=== PATIENT | female | born 1930 | race Caucasian/White ===

== ENCOUNTER 2018-07-24 12:46 | Outpatient (CLI) | payer MEDICARE, OTHER | END 2018-07-24 12:47 | disposition critical access hospital (66) | LOC: EMS 12:46 | PROVIDERS: ATTEND Surgery | DX: E53.1 Pyridoxine deficiency (principal); R11.10 Vomiting, unspecified; R19.7 Diarrhea, unspecified | CPT/HCPCS: A0425; A0429 ==

== ENCOUNTER 2018-07-24 13:05 | Emergency (ER) | payer MEDICARE, OTHER ==
--- NOTE | 2018-07-24 13:24 | ED Physician Documentation ---
History of Present Illness - Stated complaint Stated Complaint: WEAKNESS - Chief complaint Chief Complaint: Abd Pain - History obtained from History obtained from: Patient - History of Present Illness Timing: Prior to arrival - Additonal information Additional information: Patient is an 88-year-old female with history of heart disease presenting with recent onset of nausea and vomiting without abdominal pain. Patient is a somewhat poor historian and also actively vomiting, so history is limited. She does deny fever, stool changes, urinary changes as well. No known worsening or improving factors noted. 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 HEENT: Tonsil/Adenoidectomy - Present Medications Home Medications: Ambulatory Orders Medication Instructions Recorded Confirmed HYDROcod/ACETAM 5/325 [[place] 5/325] 1 ea PO Q6H PRN #20 tablet 02/21/15 LORazepam [Ativan] 02/19/16 Metoprolol Tartrate 50 mg 02/19/16 Ondansetron HCl [Zofran] 4 mg PO Q6H PRN #10 tablet 02/19/16 Polyethylene Glycol 3350 [Miralax] 17 gm PO DAILY PRN #1 bottle 02/19/16 amLODIPine [Norvasc] 10 02/19/16 Ondansetron Odt [Zofran] 4 mg TL Q6H PRN #8 tablet 07/24/18 - Allergies Allergies/Adverse Reactions: Allergies Allergy/AdvReac Type Severity Reaction Status Date / Time No Known Drug Allergies Allergy Verified 07/24/18 13:11 - Social History Does the pt smoke?: No Smoking Status: Never smoker PD ED PE NORMAL - General General: Other (Thin, frail appearing female with generalized tremors, actively vomiting. Hard of hearing.) - HEENT HEENT: Atraumatic, Moist mucous membranes - Cardiac Cardiac: RRR, No murmur - Respiratory Respiratory: No respiratory distress, Clear bilaterally - Abdomen Abdomen: Normal bowel sounds, Soft, Non tender, Non distended - Derm Derm: Normal color, Warm and dry, No rash, Other - Extremities Extremities: No deformity - Neuro Neuro: No motor deficit (No gross motor or sensory deficits present, generalized tremor, likely chronic), No sensory deficit - Psych Psych: Normal mood, Normal affect Results - Vitals Vitals: Vital Signs - 24 hr 07/24/18 07/24/18 13:07 14:39 Temperature 35.7 C L Heart Rate 68 63 Respiratory 20 18 Rate Blood Pressure 176/63 H 144/68 H O2 Saturation 98 99 Oxygen O2 Source Room air - EKG (time done) 1412 Rate: Rate (enter#) (71) Rhythm: Other (Significant artifact due to patient movement, but appears sinus) Intervals: Prolonged QT QRS: LVH Ischemia: Non specific changes Other comments: Other comments (PVCs) - Labs Labs: Laboratory Tests 07/24/18 07/24/18 07/24/18 13:45 13:45 13:45 WBC 11.2 H RBC 5.27 Hgb 15.7 Hct 47.1 H MCV 89.4 MCH 29.8 MCHC 33.4 RDW 13.8 Plt Count 198 MPV 10.1 Neut # (Auto) 9.3 H Lymph # (Auto) 1.3 L Hern[place] # (Auto) 0.4 Eos # (Auto) 0.0 Baso # (Auto) 0.1 Absolute Nucleated RBC 0.00 Nucleated RBC % 0.0 Sodium 135 Potassium 3.1 L Chloride 98 L Carbon Dioxide 25 Anion Gap 12.0 BUN 23 H Creatinine 0.8 Estimated GFR (MDRD) 68 L Glucose 164 H Calcium 9.7 Total Bilirubin 0.8 AST 26 ALT 14 Alkaline Phosphatase 89 Troponin I < 0.04 Total Protein 7.5 Albumin 4.7 Globulin 2.8 Albumin/Globulin Ratio 1.7 Lipase 74 H Urine Color Urine Clarity Urine pH Ur Specific [place]ollhouse Urine Protein Urine Glucose (UA) Urine Ketones Urine Occult Blood Urine Nitrite Urine Bilirubin Urine Urobilinogen Ur Leukocyte Esterase Ur Microscopic Review Urine Culture Comments Influenza A (Rapid) Influenza B (Rapid) 07/24/18 07/24/18 14:00 15:01 WBC RBC Hgb Hct MCV MCH MCHC RDW Plt Count MPV Neut # (Auto) Lymph # (Auto) Hernando # (Auto) Eos # (Auto) Baso # (Auto) Absolute Nucleated RBC Nucleated RBC % Sodium Potassium Chloride Carbon Dioxide Anion Gap BUN Creatinine Estimated GFR (MDRD) Glucose Calcium Total Bilirubin AST ALT Alkaline Phosphatase Troponin I Total Protein Albumin Globulin Albumin/Globulin Ratio Lipase Urine Color YELLOW Urine Clarity CLEAR Urine pH 7.0 Ur Specific [place] 1.010 Urine Protein NEGATIVE Urine Glucose (UA) NEGATIVE Urine Ketones NEGATIVE Urine Occult Blood NEGATIVE Urine Nitrite NEGATIVE Urine Bilirubin NEGATIVE Urine Urobilinogen 0.2 (NORMAL) Ur Leukocyte Esterase NEGATIVE Ur Microscopic Review NOT INDICATED Urine Culture Comments NOT INDICATED Influenza A (Rapid) Negative Influenza B (Rapid) Negative PD MEDICAL DECISION MAKING - ED course Complexity details: reviewed results, re-evaluated patient, considered differential, d/w patient ED course: Patient is a relatively poor historian, but it appears that her only complaint is nausea and vomiting. This nausea and vomiting seem isolated and are not acco mpanied by abdominal pain, making gallbladder disease, appendicitis, small bowel obstruction, diverticulitis, AAA less likely. Feel the patient may be experiencing gastroenteritis or other viral illness. Also considered renal disease, but feel that nephrolithiasis and pyelonephritis less likely. Do have suspicion for UTI given age and gender and will obtain urinalysis in addition to screening blood work. Otherwise, have low suspicion for respiratory or cardiac issues at this time. No other evidence of systemic illness, neurological deficit from baseline, or trauma on exam. Patient started on IV fluid and nausea medication while workup performed.Medications appear to help relieve patient's symptoms. EKG did not show evidence of acute ischemia, although poor quality, given patient's tremors and vomiting. Troponin negative. Again, have low suspicion for cardiac etiology. Screening lab work and urinalysis also returned relatively unremarkable with exception of very mildly elevated lipase. Patient may be experiencing an extremely mild case of pancreatitis. Did not find obvious causes of such per history or on exam. Patient also had an extremely small elevation in her white blood cell count, which could likely be due to vomiting as opposed to infection. No acute kidney injury noted. No evidence of UTI. Influenza testing negative. Awaiting CT imaging at this time.CT returned unremarkable. Upon reevaluation's, patient comfortable and often sleeping with no further vomiting. Of note, patient had received Zofran prior to obtaining EKG, which did reflect a borderline prolonged QT. All antiemetics will have the potential risk of prolonging the QT.Do feel that she may need an antiemetic at home, but plan to prescribe to use it sparingly given this concern.Discuss results and recommendations with patient and her family including use of medications, return precautions, and appropriate follow-up as other supportive cares including clear liquid diet. Family voiced understanding and are comfortable with discharge plan. Departure - Departure Disposition: 01 Home, Self Care Clinical Impression: Nausea and vomiting Qualifiers: Vomiting type: unspecified Vomiting Intractability: non-intractable Qualified Code(s): R11.2 - Nausea with vomiting, unspecified Condition: Good Instructions: Diet Clear Liquid Dc, ED Nausea Vomiting Follow-Up: Gustavo Lopez MD [Primary Care Provider] - Within 3 Days Prescriptions: Ondansetron Odt [Zofran] 4 mg TL Q6H PRN #8 tablet PRN Reason: Nausea / Vomiting Comments: Please continue all home medications as previously instructed. May use Zofran as needed to help control nausea and vomiting. Also recommend clear diet for t he next 2-3 days and advancing diet as she can tolerate. Please follow-up with primary care physician in 2-3 days as well and return to ED sooner if she expenses worsening symptoms or other concerns.
[2018-07-24] MEDS ORDERED: ONDANSETRON 4 MG/2 ML VIAL IVP STA (13:29)
[2018-07-24] MEDS ORDERED: SODIUM CHLORIDE 0.9% 1,000 ML IV ONE (13:29)
[2018-07-24 14:04] LABS: BASOPHILS # (AUTO) 0.1 10^3/uL (0.0-0.1); BASOPHILS % (AUTO) 0.7 %; EOSINOPHILS % (AUTO) 0.2 %; HGB - HEMOGLOBIN 15.7 g/dL (12.0-16.0); LYMPHOCYTES # (AUTO) 1.3 10^3/uL (1.5-3.5); LYMPHOCYTES % (AUTO) 11.6 %; MEAN CORPUSCULAR HEMOGLOBIN 29.8 pg (27.0-31.0); MEAN CORPUSCULAR HGB CONC 33.4 g/dL (32.0-36.0); MEAN CORPUSCULAR VOLUME 89.4 fL (81.0-99.0); MEAN PLATELET VOLUME 10.1 fL (7.9-10.8); MONOCYTES # (AUTO) 0.4 10^3/uL (0.0-1.0); MONOCYTES % (AUTO) 3.9 %; NEUTROPHILS # (AUTO) 9.3 10^3/uL (1.5-6.6); NEUTROPHILS % (AUTO) 83.6 %; PLT - PLATELET COUNT 198 10^3/uL (130-450); RED BLOOD COUNT 5.27 10^6/uL (4.20-5.40); RED CELL DISTRIBUTION WIDTH 13.8 % (12.0-15.0); WHITE BLOOD COUNT 11.2 x10^3/uL (4.8-10.8)
[2018-07-24 14:24] LABS: ALBUMIN 4.7 g/dL (3.2-5.5); ALBUMIN/GLOBULIN RATIO 1.7 (1.0-2.2); BILIRUBIN,TOTAL 0.8 mg/dL (0.2-1.0); CALCIUM 9.7 mg/dL (8.5-10.3); CREATININE 0.8 mg/dL (0.4-1.0); TOTAL PROTEIN 7.5 g/dL (6.7-8.2)
[2018-07-24 15:28] LABS: BILIRUBIN,URINE NEGATIVE (NEGATIVE); GLUCOSE, URINE (UA) NEGATIVE (NEGATIVE); KETONES,URINE (UA) NEGATIVE (NEGATIVE); LEUKOCYTE ESTERASE, URINE NEGATIVE (NEGATIVE); NITRITE,URINE NEGATIVE (NEGATIVE); OCCULT BLOOD,URINE NEGATIVE (NEGATIVE); PROTEIN,URINE NEGATIVE (NEGATIVE); UROBILINOGEN,URINE 0.2 (NORMAL) E.U./dL (NORMAL)
[2018-07-24 15:44] LABS: CLARITY,URINE CLEAR (CLEAR)
[2018-07-24] MEDS ORDERED: IOPAMIDOL-300 100 ML VIAL ONE (16:00)
--- NOTE | 2018-07-24 17:02 | CT Report ---
Reason: nausea and vomiting without pain Procedure Date: 07/24/2018 Accession Number: [id number] / [id number] Procedure: CT - Abdomen/Pelvis W CPT Code: FULL RESULT: EXAM: CT ABDOMEN AND PELVIS EXAM DATE: 07/24/2018 04:20 PM. CLINICAL HISTORY: Nausea and vomiting without pain. COMPARISONS: ABDOMEN/PELVIS W/ 02/19/2016 2:02 PM. TECHNIQUE: Routine helical CT imaging was performed through the abdomen and pelvis. IV contrast: CE. Enteric contrast: No. Reconstructions: Coronal and sagittal. In accordance with CT protocol optimization, one or more of the following dose reduction techniques were utilized for this exam: automated exposure control, adjustment of mA and/or KV based on patient size, or use of iterative reconstructive technique. FINDINGS: Lung Bases: Unremarkable. Liver: Normal. No masses. Gallbladder/Bile Ducts: Unremarkable. Spleen: Normal. Pancreas: Normal. Adrenal Glands: Normal. Kidneys: No significant abnormalities. There is an exophytic cyst emanating from the anterior cortex of the left kidney. Peritoneal Cavity/Bowel: Normal. No free fluid, free air or adenopathy. No masses or acute inflammatory process. The appendix is well visualized and normal. Pelvic Organs: Normal. The bladder and visualized pelvic organs are within normal limits. Vasculature: There are atheromatous calcifications of the aorta and branch vessels. No acute abnormalities. Bones: No significant abnormality. Other: None. IMPRESSION: Negative contrast enhanced CT of the abdomen and pelvis. No acute solid or hollow viscus organ abnormalities to account for the patient's abdominal pain. RADIA
[2018-07-24] MEDS ORDERED: IOPAMIDOL-300 100 ML VIAL IVP ONE (17:33)
[2018-07-24 17:59] VITALS: BP 138/70
== END 2018-07-24 18:05 | disposition home or self-care (01) ==
LOC: EDUNIT# → ED 13:05
DX: R11.2 Nausea with vomiting, unspecified (principal); I10 Essential (primary) hypertension; I25.10 Atherosclerotic heart disease of native coronary artery without angina pectoris; I25.2 Old myocardial infarction
CPT/HCPCS: 36415; 74177; 80053; 81003; 83690; 84484; 85025; 87275; 87276; 93005; 96374; 99283; Q9967; 81001; 87086

== ENCOUNTER 2018-08-03 14:47 | Outpatient (CLI) | payer MEDICARE, OTHER ==
--- NOTE | 2018-08-03 15:22 | CONSULTATION NOTE ---
Palliative Care Consultation - Referral Referring Provider: Dr Lopez. Time of Visit: 08/03/2018. 11:15 - 12:30 Referral setting: Home Referral Reason: Dementia / GI upset, weakness - Information Sources Records reviewed: Previous records reviewed History/Review of Systems obtained from: Patient, Family Exam limitations: Clinical condition (Dementia, short-term memory deficits) - History of Present Illness Brief History of Present Illness: 88-year-old female with h/o heart disease, lives at home with her adult son. She has advanced dementia, likely vascular, with slow and steady cognitive and functional decline. Recently seen in ED for N/V and complaints of weakness, has not returned to baseline. Medical history: Advanced dementia; CAD; PVD; h/o CT with stents placed; HTN; HLD; osteoporosis; h/o hip fracture; anxiety; personal h/o carotid stenosis. Present at today's visit is her son, Winston who lives with her, and daughter Belén, who lives in [place]. Son Winston is her main caregiver. He is on disability due to Parkinson's disease. Daughter Belén is also a palliative care patient due to h/o advanced liver disease. 07/24/2018 patient's family took her to ED for nausea with vomiting, not accompanied by abdominal pain, making gallbladder diseas, appendicitis, SBO, diverticulitis, AAA less likely. EKG didn't show evidence of acute ischemia, troponin was negative, urinalysis also unremarkable. Another possibility was an extremely mild case of pancreatitis. She was DC'd home with Zofran and recommendation for a clear diet for next 2-3 days. 07/28/2018 she followed up with her PCP. PCP thought PUD (peptic ulcer disease) could be on the differential; patient and family were not supportive of diagnostic endoscopy. The agreed plan was to try sucralfate and Prilosec with close follow-up, and a referral to Palliative Care. Family notes that patient is still not back to baseline, spending most of her time in bed sleeping, refusing hygiene care or changing her briefs (this has been an issue for a while), and with poor appetite. She did have one day of increased activity and appetite, but feel back into lethargy and sleeping most of the time. Patient does rouse easily today when I went in to her room, responding appropriately though vaguely to questions. She denies abdominal pain, but reports mild stomach upset. She does say she is "hungry." She denies cough, chest pain, SOA, dysuria, constipation. She is eventually agreeable to sitting up in bed, is able to transfer easily out of bed to standing, and is able to ambulate with walker into the living room and sit in her normal easy chair. Both Winston and Belén were pleased to see her up. She reports being hungry, but didn't touch the food Belén brought her. We discussed nutritional, high calorie food ideas (patient has problems chewing due to dentures) serving smaller, more frequent snack/meals, possible using an appetite stimulant (we did not start one today), also discussed CBD products as appetite stimulants. Discussed tactics for increasing helping to bath, washing hair and provide p erson care for her. They have been working with [employer] and are in the [employer] program, so she has 8 hr/month of caregiving. Jovana the caregiver has started coming Wednesdays for 2 hours and helps out with bathing. 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 She lives with her son Winston in [place]. Her daughter Belén lives in [place] on [facility]. Family History - Family History Family History Comment/Other: Family history non-contributory. Medications/Allergies - Medications Home Medications: Ambulatory Orders Medication Instructions Recorded Confirmed LORazepam [Ativan] 0.5 mg PO TID PRN 02/19/16 08/03/18 Metoprolol Tartrate 75 mg PO BID 02/19/16 08/03/18 amLODIPine [Norvasc] 10 mg PO DAILY 02/19/16 08/03/18 Ondansetron Odt [Zofran] 4 mg TL Q6H PRN #8 tablet 07/24/18 08/03/18 Cholestyramine [Questran] 4 g PO BID 08/03/18 08/03/18 Donepezil HCl 10 mg PO QPM 08/03/18 08/03/18 Pantoprazole Sodium [Protonix] 40 mg PO DAILY 08/03/18 08/03/18 Sucralfate [Carafate] 10 ml PO QID 08/03/18 08/03/18 hydroCHLOROthiazide 25 mg PO DAILY 08/03/18 08/03/18 [Hydrochlorothiazide] - Allergies Allergies/Adverse Reactions: Allergies Allergy/AdvReac Type Severity Reaction Status Date / Time atorvastatin [From Lipitor] Allergy Unknown Verified 07/27/18 08:04 Review of Systems - Constitutional Constitutional: reports: Fatigue, Weakness, Poor appetite, Other (Fluctuating weight. Weighed 132 lbs at office visit 07/28/18, BMI 24.04, ht 62.25 inches. In Jan 2016 in ED weighed 68.039kg (149.7 lbs) BMI 26.6. In Jan 2015 ED, weighed 58.976kg (129.7 lbs) 23.8 BMI.). denies: Fever, Chills, Malaise, Night sweats - Ears, Nose & Throat Ears, Nose & Throat: reports: Hearing loss. denies: Hearing aids, Nasal congestion, Postnasal drainage - Cardiovascular Cardiovascular: denies: Palpitations, Chest pain, Edema, Lightheadedness, Decr. exercise tolerance - Respiratory Respiratory: denies: Cough, Sputum production, Wheezing, SOB at rest - Gastrointestinal Gastrointestinal: reports: Nausea, Poor appetite, Early satiety. denies: Abdominal pain, Abdominal distention - Genitourinary Genitourinary: reports: Incontinence (occasional urinary incontinence, one episode incontinence of bowel). denies: Dysuria - Musculoskeletal Musculoskeletal: reports: Assistive devices (walker). denies: Muscle aches, Transfer issues - Integumentary Integumentary: reports: Dryness - Neurological Neurological: reports: General weakness - Psychiatric Psychiatric: denies: Behavior disturbances - Other Findings Other Findings: Limited ROS. Physical Exam - Vital Signs Temperature: 96.3 F Pulse Rate: 48 O2 Saturation: 95 (room air) Blood Pressure: 128/53 (wrist cuff) - Physical Exam General Appearance: positive: No acute distress, Other (Easily woken up, was alert once she was awake and talking) ENT: positive: Dry mucous membranes Neck: positive: Trachea midline Cardiovascular: positive: Regular rate & rhythm Respiratory: positive: Diminished throughout. negative: Wheezes, Rales, Rhonchi Abdomen: positive: Non-tender, Soft, Nml bowel sounds. negative: Guarding, Organomegaly, Distended Skin: positive: Dryness Extremities: positive: Nml appearance, No pedal edema Neurologic/Psychiatric: positive: Mood/affect nml, Disoriented to time Palliative Care - POLST Patient has POLST: Yes POLST Status: DNR, Selective Treatment Pain: No pain Tiredness/Fatigue: Severe (7-10) Drowsiness/Sedation: Moderate (4-6) Nausea: Mild (1-3) Dyspnea: None Anorexia: Moderate (4-6) Sleep: Other (excessive sleeping since ED visit 07/24/18) Performance Status: Ambulatory with walker Sleeping most of the time Articulate Unable to prepare own meals Dresses self, wears the same cloths day after day Disinterest in appearance Refuses baths and hair washing Doesn't want briefs changed Poor appetite, but reports being hungry - Palliative Care Discussion: Son doesn't recall exactly when she had diagnosis of dementia, thinks it's been 2-3 years. She has remained in the house, no longer going outside, since Jan 2014 or 2014. The son remembers it was in January. She does wear Life Alert, but it's not hooked up to a service, and son doesn't think she knows what to do with it. Son is with her most of the time, leaving for only short periods. He remains able to drive short distances around town. His Parkinson's is advancing. So far he is finding it possible to provide caregiving but it's becoming more difficult. The patient doesn't allow him to do personal care, and she wears her adult briefs for days at a time. Her clothing too. Daughter Belén can come perhaps once a week. She doesn't drive and there's no public transit where she lives in [place]. Jovana, the errol stephenson, has been helping with the hygiene care on Wednesdays. Patient qualified only for [facility], so they get 8 hr/month caregiving support. Patient denies abdominal pain, and reports her stomach is upset, but she is not nauseated. She says she's hungry, but doesn't eat when food is provided. Family is worried about her decline, which has been significant since her trip to the ED on july 24. They were suprised and pleased she got up today and sat in her favorite chair. She has basically been saying all she wants to do is go to sleep. Family reports that she had said she'd like to go to sleep and not wake up. They thought she would just want comfort care and definitely no hospital transf er. But when I asked her directly, she said she would want to go to the hospital if she had something like pneumonia. Family says she's had a h/o pneumonias At this time, family would support Hospice if patient qualified, they are ready to support comfort care. Patient's goals of care may be evolving, and Palliative Care will continue this conversation with family and patient in subsequent visits. Results - Lab Results Lab results reviewed: Yes Impression and Recommendations - Palliative Care Impression: 88-year-old female with h/o heart disease, lives at home with her adult son. She has advanced dementia, likely vascular, with slow and steady cognitive and functional decline. Recently seen in ED for N/V and complaints of weakness, has not returned to baseline, continues to complain of stomach upset, has a poor appetite, does not want to pursue endoscopy. Has recently started receiving caregiver support once a week through the [facility] program. Patient and family would benefit ongoing Palliative Care support and monitoring. Recommendations/Counseling Done: Dementia without behaviors: Diagnosed 2-3 years ago. Steady decline cognitively and functionally. Son is primary caregiver, has a [employer] caregiver come in a few hours on Wednesdays. Daughter Belén can also provide some support weekly. Patient is resisting bath and hygiene, offered education and tactics to approach this. She is currently on donepezil. She has lorazepam for anxiety, family reports it's rarely used. Stomach upset: Denies pain and nausea, reports she is hungry but doesn't eat. On sucralfate daily for 2 weeks, also on pantoprazole and cholestyramine BID. She has ondansetron for N/V, use sparingly, it can cause QT prolongation. Patient confirmed again today she doesn't want follow up diagnostics (endoscopy). Will continue to monitor. Spoke with children about appetite stimulants, also about CBD. Will monitor her appetite (she reports being hungry today) continue to follow up. HTN: BP today 128/53. Continue Hctz, metoprolol and amlodipine (she has no pedal edema). Advance care planning: POLST is DNR and selective. Her son and daughter thought she absolutely would not want any hospitalization, that she's upset when she is there, and she's spoken of wanting to fall asleep and just not wake up. Patient herself said she'd actually want to go to the hospital, such as for pneumonia. Will continue the goals of care conversation at subsequent visits. Adult children would be supportive of Hospice when medical criteria are met. Follow up visit Tue08/30/18 11:00ish Time Spent: 75 minutes with more than 50% of the time spent on counseling, education, and anticipatory guidance.
== END 2018-08-03 14:48 | disposition home or self-care (01) ==
LOC: PC 14:47
PROVIDERS: ATTEND Nurse Practitioner
DX: Z51.5 Encounter for palliative care (principal); F03.90 Unspecified dementia, unspecified severity, without behavioral disturbance, psychotic disturbance, mood disturbance, and anxiety; R10.13 Epigastric pain; I10 Essential (primary) hypertension; Z87.891 Personal history of nicotine dependence; Z66 Do not resuscitate
CPT/HCPCS: 99345

== ENCOUNTER 2018-08-30 16:39 | Outpatient (CLI) | payer MEDICARE, OTHER ==
--- NOTE | 2018-08-30 17:39 | CONSULTATION NOTE ---
Palliative Care Follow Up - Referral Referring Provider: Dr Lopez Time of Visit: Tue08/30/2018. 11:10 - 12:10 Referral setting: Home Referral Reason: Dementia - Information Sources Records reviewed: Previous records reviewed History/Review of Systems obtained from: Patient, Family Exam limitations: Clinical condition (Dementia, short term memory deficits) - History of Present Illness Update Brief HPI Update: 88-year-old female with h/o heart disease, lives at home with her adult son. She has advanced dementia, likely vascular, with slow and steady cognitive and functional decline, spends most of her time in bed, resists personal care. Appetite has improved recently Medical history: Advanced dementia; CAD; PVD; h/o DE with stents placed; HTN; HLD; osteoporosis; h/o hip fracture; anxiety; personal h/o carotid stenosis. Present at today's visit is her son, Winston who lives with her, and daughter Belén, who lives in [place]. They report patient is eating better now, accepting more variety of food. She gets Meals on Wheels. She is having more regular bowel movements. She is walking more, with episodic spurts of energy, where she'll come out of the bedroom, with some idea in mind around the house. Most of the time she spends in bed. Patient complains of vague symptoms of "having a cold." She denies cough, phlegm, sore throat. Has history of chronic sinus problems. When encouraged to get out of bed and walk, she agrees it is a good idea, but can she start tomorrow morning. Family is most concerned about her remaining in bed most of time, and how to provide hygiene and keep her clean. She resists personal care, hasn't taken a shower since April. Resists changing underwear, showers, washing hair. Offered counseling that this behavior is not uncommon, and ideas for approaching her, setting realistic goals. Her son Winston is uncomfortable with doing any sort of personal care with her. Belén is able to have some success, but lives in [place] and has transport challenges getting here. They do have [employer] help, 2 hours per week. It is unclear whether the patient would qualify for Medicaid and [employer], and unclear from Winston how much he has looked into it on her behalf. Medications/Allergies - Medications Home Medications: Ambulatory Orders Medication Instructions Recorded Confirmed LORazepam [Ativan] 0.5 mg PO TID PRN 02/19/16 08/30/18 Metoprolol Tartrate 75 mg PO BID 02/19/16 08/30/18 amLODIPine [Norvasc] 10 mg PO DAILY 02/19/16 08/30/18 Ondansetron Odt [Zofran] 4 mg TL Q6H PRN #8 tablet 07/24/18 08/30/18 Cholestyramine [Questran] 4 g PO BID 08/03/18 08/30/18 Donepezil HCl 10 mg PO QPM 08/03/18 08/30/18 Pantoprazole Sodium [Protonix] 40 mg PO DAILY 08/03/18 08/30/18 hydroCHLOROthiazide 25 mg PO DAILY 08/03/18 08/30/18 [Hydrochlorothiazide] Cetirizine HCl 5 mg PO DAILY 08/30/18 08/30/18 - Allergies Allergies/Adverse Reactions: Allergies Allergy/AdvReac Type Severity Reaction Status Date / Time atorvastatin [From Lipitor] Allergy Unknown Verified 07/27/18 08:04 Review of Systems - Constitutional Constitutional: reports: Fatigue, Weakness, Other (Fluctuating weight. Most recent weight is 132 lbs at office visit 07/28/18, BMI 24.04, ht 62.25 inches. In Jan 2016 in ED weighed 68.039kg (149.7 lbs) BMI 26.6. In Jan 2015 ED, weighed 58.976kg (129.7 lbs) 23.8 BMI.). denies: Fever, Chills - Ears, Nose & Throat Ears, Nose & Throat: reports: Hearing loss, Postnasal drainage. denies: Sore throat - Cardiovascular Cardiovascular: denies: Chest pain, Edema - Respiratory Respiratory: denies: Cough, Sputum production, Wheezing, SOB at rest - Gastrointestinal Gastrointestinal: reports: Diarrhea (h/o loose stools). denies: Constipation, Nausea - Genitourinary Genitourinary: reports: Incontinence (occasional urinary incontinence; one episode bowel incontinence) - Musculoskeletal Musculoskeletal: reports: Assistive devices (walker). denies: Transfer issues - Neurological Neurological: reports: General weakness, Memory problems - Psychiatric Psychiatric: denies: Behavior disturbances Physical Exam - Vital Signs Temperature: 96.3 F Pulse Rate: 43 O2 Saturation: 95 (room air) Blood Pressure: 125/59 - Physical Exam General Appearance: positive: No acute distress, Lethargic, Other (wakes easily, wants to remain in bed) Eyes Bilateral: positive: No lid inflammation, Conjunctivae nml, No scleral icterus ENT: positive: No signs of dehydration, Other (missing front tooth) Neck: positive: Trachea midline Cardiovascular: positive: Regular rate & rhythm, No murmur, No gallop Respiratory: positive: Chest non-tender, No respiratory distress, Diminished throughout Skin: positive: Other (diffuse brown seborrheic keratosis lesions spread widely across upper back/shoulders. appears to be from chronic friction, possibly secondary to long hours in bed. Also has a small lipoma near mid thoracic spine, about 2cm x 2.5cm.) Extremities: positive: No pedal edema Neurologic/Psychiatric: positive: Mood/affect nml, Disoriented to time Palliative Care - POLST Patient has POLST: Yes POLST Status: DNR, Selective Treatment Performance Status: ambulatory with walker, has been walking more sleeps, remains in bed most of time articulate unable to prepare own meals dresses self, doesn't change clothes/underwear resistant to bathing and personal care improved appetite, eating more variety of food - Palliative Care Discussion: Patient has remained in the house since about 2014. Winston remembers her going outside to do some gardening when they first moved there, and then she never went out again. It appears there is an agoraphobic aspect in her behavior. Son has advancing Parkinson's disease, he doesn't leave her often. He still drives, but just short distances around town. Belén, daughter, doesn't have a car, gets around by public transit but it's challenging due to wear she lives in [place]. The son is not able, or comfortable enough, to provide personal caregiving to his mother (bathing, changing underwear), particularly since she is very resistant to receiving personal care. Winston's greatest concern and stress point is how to take care of the patient's hygiene. Although palliative care offered support and normalization for their situation (resistance to bathing/caregiving is common), it's still significantly challenging and stressful for Winston. He is not able to perform personal caregiving himself, for a variety of reasons, and in addition he deals with his own serious health issues related to Parkinson's. We discussed anticipating what will occur and what to expect as patient's care needs increase over time. This may be something that Winston and/or Belén may have not discussed or thought of in any depth previously. The patient is not on Medicaid, but she may possibly qualify. Winston reports she has no assets (they rent), her income is a bit over $900/month. They currently have [employer] caregiver support, 2hrs/week. I will refer them to palliative care licensed master social worker for resource support, particularly about whether she would qualify for medicaid/ROS[place], for increased caregiving support. Medicaid in particular would be of benefit in the future if her care needs escalate beyond what Winston can manage, and the family may need to look into placement. Impression and Recommendations - Palliative Care Impression: 88-year-old female with h/o heart disease, lives at home with her adult son. She has advancing dementia, likely vascular, with slow and steady cognitive and functional decline. Her appetite has improved recently, she has been walking more, with more regular bowel movements. She continues to spend most of her time in bed, neglects her hygiene and is highly resistant to personal care. Daughter Belén has been able to provide personal care, but doesn't live close by and isn't there often. Patient and family would benefit from support of Palliative Care Glass Handler for resource support, particularly looking into qualifying for medicaid and [employer]. They do currently have 2 hours of [employer] support weekly. Palliative Care will continue to provide support and monitoring. Recommendations/Counseling Done: Dementia without behaviors: Has steadily declined cognitively and functionally, but with recent improvement in appetite, and walking more frequently. Patient is resistant to bathing and hygiene, this is stressful and difficult for son/DPOA, who has serious health challenges with Parkinson's. Daughter Belén helps as she can but has health and transportation challenges of her own. Patient is on donepezil, with lorazepam for anxiety, rarely used. Anorexia: Improved appetite reported by family, with patient eating a wider variety of food. They don't feel appetite stimulants are needed currently. She also gets Meals on Wheels HTN: BP 125/59 on Hctz, metoprolol and amlodipine. Advance care planning: POLST is DNR and selective. Family's biggest concern currently is how to provide personal/hygiene care for patient who resists it, and son who is not comfortable or capable of providing personal care. Daughter helps when she can. Caregiver who comes for 2 hours doesn't appear to have success in getting pt to cooperate. Am referring this patient to Palliative Care licensed master social worker to provide resource and psychosocial lainez pport to this family. In particular, does the patient qualify for Medicaid and [employer] and their accompanying services and benefits. As for future goals of care, son and daughter thought patient absolutely would not want any hospitalization, that she's upset when she is there, in the past she's spoken of wanting to fall asleep and just not wake up. Patient herself at initial palliative care visit that she would actually want to go to the hospital, such as for pneumonia. Her adult children would be supportive of Hospice when medical criteria are met. Referred patient/family to Palliative Care SW for follow up on resource support. Time Spent: 60 minutes with more than 50% of the time spent on counseling, education, and coordination of care.
== END 2018-08-30 16:40 | disposition home or self-care (01) ==
LOC: PC 16:39
PROVIDERS: ATTEND Nurse Practitioner
DX: Z51.5 Encounter for palliative care (principal); I25.2 Old myocardial infarction; F03.91 Unspecified dementia, unspecified severity, with behavioral disturbance; Z66 Do not resuscitate; R63.0 Anorexia; R53.1 Weakness; I10 Essential (primary) hypertension; I25.10 Atherosclerotic heart disease of native coronary artery without angina pectoris; I73.9 Peripheral vascular disease, unspecified; E78.5 Hyperlipidemia, unspecified; F41.9 Anxiety disorder, unspecified; H91.90 Unspecified hearing loss, unspecified ear; R32 Unspecified urinary incontinence
CPT/HCPCS: 99350

== ENCOUNTER 2018-11-30 12:46 | Outpatient (CLI) | payer MEDICARE, OTHER | END 2018-11-30 12:47 | disposition critical access hospital (66) | LOC: EMS 12:46 | PROVIDERS: ATTEND Surgery | DX: R41.82 Altered mental status, unspecified (principal) | CPT/HCPCS: A0425; A0427 ==

== ENCOUNTER 2018-11-30 13:01 | Inpatient (IN) | payer MEDICARE, OTHER ==
--- NOTE | 2018-11-30 13:14 | ED Physician Documentation ---
PD HPI ALTERED MENTAL STATUS - Stated complaint Stated Complaint: AMS - History obtained from History obtained from: EMS - History of Present Illness Timing - onset: Today Timing - details: Still present in ED Quality / character: Unresponsive Associated symptoms: No: NVD Basline status: Alert and oriented X 3, Independent, Home Treatment FINANCIAL UNDERWRITER: Accucheck, Narcan - Additional information Additional information: This is an 88-year-old woman who lives with her son. Apparently she was normal before she went to bed last night sometime after it was dark. She however has been getting a little more sleepy over the past few days. This morning when she did get out of bed they went in to check on her and at noon she was in bed and would not wake up. She had not vomited. They were concerned that she might of had some agonal breathing sitting and called 911. Ambulance found her bradycardic with heart rate of 45. O2 sats were 95% blood pressure was 160/90. Pupils were pinpoint so they gave her 2 mg of Narcan although there is no access to narcotics that they are aware of. She had no response to that they gave her atropine 0.5 mg with heart rates improved into the 90s. They did have to suction her oropharynx is her thick secretions in it. They were unable to pro vide any further history and her son has not yet arrived in the emergency department. 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 Cardiovascular: Coronary stent (reported by reed) HEENT: Tonsil/Adenoidectomy - Present Medications Home Medications: Ambulatory Orders Medication Instructions Recorded Confirmed LORazepam [Ativan] 0.5 mg PO TID PRN 02/19/16 08/30/18 Metoprolol Tartrate 75 mg PO BID 02/19/16 08/30/18 amLODIPine [Norvasc] 10 mg PO DAILY 02/19/16 08/30/18 Ondansetron Odt [Zofran] 4 mg TL Q6H PRN #8 tablet 07/24/18 08/30/18 Cholestyramine [Questran] 4 g PO BID 08/03/18 08/30/18 Donepezil HCl 10 mg PO QPM 08/03/18 08/30/18 Pantoprazole Sodium [Protonix] 40 mg PO DAILY 08/03/18 08/30/18 hydroCHLOROthiazide 25 mg PO DAILY 08/03/18 08/30/18 [Hydrochlorothiazide] Cetirizine HCl 5 mg PO DAILY 08/30/18 08/30/18 - Allergies Allergies/Adverse Reactions: Allergies Allergy/AdvReac Type Severity Reaction Status Date / Time atorvastatin [From Lipitor] Allergy Unknown Verified 11/30/18 13:17 - Social History Does the pt smoke?: No Smoking Status: Never smoker Does the pt drink ETOH?: No Does the pt have substance abuse?: No - Immunizations Immunizations are current?: Yes - POLST Patient has POLST: Yes PD ED PE NORMAL - Vitals Vital signs reviewed: Yes - General General: Other (Unresponsive.) - HEENT HEENT: Atraumatic, Other (Pupils are pinpoint bilaterally. Mucous membranes are dry and there is thick oral secretions.) - Neck Neck: Thyroid normal, No JVD - Cardiac Cardiac: RRR, No murmur, No gallop, Strong equal pulses - Respiratory Respiratory: No respiratory distress, Clear bilaterally (There are some referred upper respiratory sounds.) - Abdomen Abdomen: Normal bowel sounds, Soft, Non tender, Non distended, No organomegaly - Derm Derm: Normal color, Warm and dry - Extremities Extremities: No edema - Neuro Neuro: Other (Patient is unresponsive.) Eye Opening: None Motor: None Verbal: None GCS Score: 3 Results - Vitals Vitals: Vital Signs - 24 hr 11/30/18 11/30/18 13:07 14:08 Temperature 36.8 C Heart Rate 89 67 Respiratory 20 12 Rate Blood Pressure 150/90 H 149/65 H O2 Saturation 93 93 Oxygen O2 Source Nasal cannula - EKG (time done) 1309 Rate: Rate (enter#) Rhythm: NSR Intervals: Normal VA Ischemia: ST depression (V3-6) Other comments: Other comments (There are Q waves in lead III and aVF. Occasional PAC.) Compare to prior EKG: Changed from prior EKG (The 2 most recent EKGs did not s how this ST depression that is evident today.) - Labs Labs: Laboratory Tests 11/30/18 11/30/1811/30/19 13:29 13:29 13:29 WBC 8.4 RBC 4.81 Hgb 14.4 Hct 44.0 MCV 91.5 MCH 29.9 MCHC 32.7 RDW 12.8 Plt Count 174 MPV 11.7 H Neut # (Auto) 6.4 Lymph # (Auto) 1.3 L [place] # (Auto) 0.7 Eos # (Auto) 0.0 Baso # (Auto) 0.0 Absolute Nucleated RBC 0.00 Nucleated RBC % 0.0 Sodium 140 Potassium 3.3 L Chloride 103 Carbon Dioxide 23 Anion Gap 14.0 H BUN 22 H Creatinine 0.8 Estimated GFR (MDRD) 68 L Glucose 110 H Lactic Acid 1.0 Calcium 8.9 Total Bilirubin 0.9 AST 36 ALT 26 Alkaline Phosphatase 81 Total Creatine Kinase 302 H Troponin I High Sens Total Protein 6.7 Albumin 3.9 Globulin 2.8 Albumin/Globulin Ratio 1.4 Lipase 41 Urine Color Urine Clarity Urine pH Ur Specific [place] Urine Protein Urine Glucose (UA) Urine Ketones Urine Occult Blood Urine Nitrite Urine Bilirubin Urine Urobilinogen Ur Leukocyte Esterase Ur Microscopic Review Urine Culture Comments Urine Opiates Screen Ur Oxycodone Screen Urine Methadone Screen Ur Propoxyphene Screen Ur Barbiturates Screen Ur Tricyclics Screen Ur Phencyclidine Scrn Ur Amphetamine Screen U Methamphetamines Scrn U Benzodiazepines Scrn Urine Cocaine Screen U Cannabinoids Screen 11/30/18 11/30/18 13:29 13:30 WBC RBC Hgb Hct MCV MCH MCHC RDW Plt Count MPV Neut # (Auto) Lymph # (Auto) [place] # (Auto) Eos # (Auto) Baso # (Auto) Absolute Nucleated RBC Nucleated RBC % Sodium Potassium Chloride Carbon Dioxide Anion Gap BUN Creatinine Estimated GFR (MDRD) Glucose Lactic Acid Calcium Total Bilirubin AST ALT Alkaline Phosphatase Total Creatine Kinase Troponin I High Sens 12.9 Total Protein Albumin Globulin Albumin/Globulin Ratio Lipase Urine Color YELLOW Urine Clarity CLEAR Urine pH 7.0 Ur Specific [place] 1.015 Urine Protein NEGATIVE Urine Glucose (UA) NEGATIVE Urine Ketones NEGATIVE Urine Occult Blood NEGATIVE Urine Nitrite NEGATIVE Urine Bilirubin NEGATIVE Urine Urobilinogen 0.2 (NORMAL) Ur Leukocyte Esterase NEGATIVE Ur Microscopic Review NOT INDICATED Urine Culture Comments NOT INDICATED Urine Opiates Screen NEGATIVE Ur Oxycodone Screen NEGATIVE Urine Methadone Screen NEGATIVE Ur Propoxyphene Screen NEGATIVE Ur Barbiturates Screen NEGATIVE Ur Tricyclics Screen NEGATIVE Ur Phencyclidine Scrn NEGATIVE Ur Amphetamine Screen NEGATIVE U Methamphetamines Scrn NEGATIVE U Benzodiazepines Scrn NEGATIVE Urine Cocaine Screen NEGATIVE U Cannabinoids Screen NEGATIVE - Rads (name of study) CXR Radiology: EMP read indepedently, EMP read contemporaneously (No acute infiltrate) PD MEDICAL DECISION MAKING - ED course Complexity details: reviewed results, re-evaluated patient, d/w patient, d/w family, d/w independent consultant ED course: 1350: Patient's son is at the bedside. He has had Parkinson's and says he has a poor memory. He is here with his significant other. They are not able to add much additional information to the patient's history that was provided by EMS. Patient does have a history of dementia and apparently spends a vast majority of her time in bed. She was accompanied by DNR paperwork that unfortunately was not signed by her but the son confirms her wishes of no intubation or cardiac resuscitation. 1523: The chest x-ray is negative for pneumonia. Urinalysis is clear without evidence of infection. CBC is normal. Her potassium slightly low at 3.3 and her CK is elevated at 302. Is unclear how long she is actually physically been laying in bed. There was no fall according to the family they found her in bed this morning. Troponin is normal. CTs showed subacute infarct in the left occipital and right cerebellar regions with some asymmetry of the ventricles the left being greater than the right. There is no old CT available for comparison but this current imaging could certainly explain her current symptomatology. Confirmed the DNR paperwork again with the son and whether they would want any aggressive measures at this time. He says she had some carotid ultrasounds done in 2011 that showed some blockages but there was not any even any consideration of doing revascularization at that time. He did like to stand by her wishes of no aggressive resuscitative measures. I discussed with the hospitalist and she is agreed to accept the patient for admission. As I was getting off the phone with her nursing staff informed me that her saturations are down into the 80s and she is on a nonrebreather mask. Heart rate is also only 56. She is given half a milligram of atropine and have asked them to suction her. She will not be intubated. Departure - Departure Disposition: 66 [facility] DC/Xfer Clinical Impression: Cerebrovascular accident (CVA) Qualifiers: CVA mechanism: unspecified Qualified Code(s): I63.9 - Cerebral infarction, unspecified Altered mental status Qualifiers: Altered mental status type: unspecified Qualified Code(s): R41.82 - Altered mental status, unspecified Condition: Poor
[2018-11-30] MEDS ORDERED: SODIUM CHLORIDE 0.9% 1,000 ML IV ONE (13:16)
[2018-11-30 13:38] LABS: BASOPHILS % (AUTO) 0.4 %; EOSINOPHILS % (AUTO) 0.1 %; HGB - HEMOGLOBIN 14.4 g/dL (12.0-16.0); LYMPHOCYTES # (AUTO) 1.3 10^3/uL (1.5-3.5); LYMPHOCYTES % (AUTO) 15.7 %; MEAN CORPUSCULAR HEMOGLOBIN 29.9 pg (27.0-31.0); MEAN CORPUSCULAR HGB CONC 32.7 g/dL (32.0-36.0); MEAN CORPUSCULAR VOLUME 91.5 fL (81.0-99.0); MEAN PLATELET VOLUME 11.7 fL (7.9-10.8); MONOCYTES # (AUTO) 0.7 10^3/uL (0.0-1.0); MONOCYTES % (AUTO) 7.8 %; NEUTROPHILS # (AUTO) 6.4 10^3/uL (1.5-6.6); NEUTROPHILS % (AUTO) 75.6 %; PLT - PLATELET COUNT 174 10^3/uL (130-450); RED BLOOD COUNT 4.81 10^6/uL (4.20-5.40); RED CELL DISTRIBUTION WIDTH 12.8 % (12.0-15.0); WHITE BLOOD COUNT 8.4 x10^3/uL (4.8-10.8)
[2018-11-30 13:38] LABS: MUDS CUTOFF CONCENTRATIONS CUTOFF CONC BELOW:
[2018-11-30 13:46] LABS: BILIRUBIN,URINE NEGATIVE (NEGATIVE); CLARITY,URINE CLEAR (CLEAR); GLUCOSE, URINE (UA) NEGATIVE (NEGATIVE); KETONES,URINE (UA) NEGATIVE (NEGATIVE); LEUKOCYTE ESTERASE, URINE NEGATIVE (NEGATIVE); NITRITE,URINE NEGATIVE (NEGATIVE); OCCULT BLOOD,URINE NEGATIVE (NEGATIVE); PROTEIN,URINE NEGATIVE (NEGATIVE); UROBILINOGEN,URINE 0.2 (NORMAL) E.U./dL (NORMAL)
[2018-11-30 13:51] LABS: ALBUMIN 3.9 g/dL (3.2-5.5); ALBUMIN/GLOBULIN RATIO 1.4 (1.0-2.2); BILIRUBIN,TOTAL 0.9 mg/dL (0.2-1.0); CALCIUM 8.9 mg/dL (8.5-10.3); CREATININE 0.8 mg/dL (0.4-1.0); TOTAL PROTEIN 6.7 g/dL (6.7-8.2)
[2018-11-30 13:57] LABS: AMPHETAMINE SCREEN,URINE NEGATIVE (NEGATIVE); BENZODIAZEPINES SCREEN, URINE NEGATIVE (NEGATIVE); COCAINE SCREEN URINE NEGATIVE (NEGATIVE); METHADONE SCREEN, URINE NEGATIVE (NEGATIVE); METHAMPHETAMINES SCREEN, URINE NEGATIVE (NEGATIVE); OPIATE SCREEN, URINE NEGATIVE (NEGATIVE); OXYCODONE SCREEN, URINE NEGATIVE (NEGATIVE); PROPOXYPHENE SCREEN, URINE NEGATIVE (NEGATIVE); TRICYCLIC ANTIDEPRESSANT,URINE NEGATIVE (NEGATIVE)
--- NOTE | 2018-11-30 14:19 | XRAY Report ---
Reason: chest pain Procedure Date: 11/30/2018 Accession Number: [id number] / [id number] Procedure: XR - Chest 1 View X-Ray CPT Code: 81997 FULL RESULT: EXAM: CHEST RADIOGRAPHY EXAM DATE: 11/30/2018 01:59 PM. CLINICAL HISTORY: Chest pain. COMPARISON: XR CHEST 1 VIEWS 04/18/2010 9:09 PM. TECHNIQUE: 1 view. FINDINGS: Lungs/Pleura: A calcified granuloma in left midlung zone. No focal opacities evident. No pleural effusion. No pneumothorax. Mediastinum: Within exam limitations, the cardiomediastinal contour is normal. Other: None. IMPRESSION: No acute cardiopulmonary process. RADIA
--- NOTE | 2018-11-30 14:49 | CT Report ---
Reason: AMS Procedure Date: 11/30/2018 Accession Number: [id number] / [id number] Procedure: CT - HEAD WO CPT Code: FULL RESULT: EXAM: CT HEAD EXAM DATE: 11/30/2018 02:18 PM. CLINICAL HISTORY: AMS. COMPARISON: None. TECHNIQUE: Multiaxial CT images were obtained from the foramen magnum to the vertex. Reformats: Sagittal and coronal. IV contrast: None. In accordance with CT protocol optimization, one or more of the following dose reduction techniques were utilized for this exam: automated exposure control, adjustment of mA and/or KV based on patient size, or use of iterative reconstructive technique. FINDINGS: Parenchyma: There are areas of low attenuation involving the mesial/inferior left occipital lobe and right superior cerebellar hemisphere suggestive of acute to subacute infarct. No intraparenchymal hemorrhage. No evidence of mass, midline shift. Minaya-white differentiation is distinct. Mild patchy hypodensity in the periventricular white matter and centrum semiovale, nonspecific but probably chronic microvascular ischemic change. Extraaxial Spaces: Normal for age. No subdural or epidural collections identified. Ventricles: Mild generalized third and lateral ventriculomegaly consistent with generalized cerebral and cerebellar volume loss. There is mild asymmetry of the lateral ventricles, left larger than right, may be physiologic. Sinuses and Orbits: Imaged paranasal sinuses, orbits, and mastoids show no significant abnormality. Bones: No evidence of fracture or calvarial defect. Other: None. IMPRESSION: 1. There are areas of low attenuation involving the mesial/inferior left occipital lobe and right superior cerebellar hemisphere suggestive of acute to subacute infarct. No significant mass-effect. 2. No acute intracranial hemorrhage. 3. Chronic atrophic and probable microvascular ischemic changes, as noted above. 4. Mild asymmetry of the lateral ventricles may be physiologic RADIA The call report notification system was initiated by Dr. Lizandro Lara at 02:40 PM on 11/30/2018. The above call report findings were discussed with Danette Orozco by Dr. Lizandro Lara at 02:48 PM on 11/30/2018.
[2018-11-30] MEDS ORDERED: ATROPINE 0.4 MG/ML VIAL IVP ONE ×2 (15:22→15:34)
[2018-11-30] MEDS ORDERED: ONDANSETRON 4 MG/2 ML VIAL IVP PRN (16:52)
[2018-11-30] MEDS ORDERED: LORazepam 0.5 MG TABLET SL PRN (17:02)
--- NOTE | 2018-11-30 17:29 | HISTORY & PHYSICAL EXAMINATION ---
Chief Complaint - Chief Complaint Chief Complaint: AMS History of Present Illness - History of Present Illness HPI Comment/Other: Ms. Richardson is a 88-yrs-old female with a PMH significant for advanced dementia; CAD; PVD; hx of [place] with stents placed; HTN; HLD; osteoporosis; hx of hip fracture; anxiety; carotid stenosis without revascularization due to pt's medical condition on 2011 per pt's son's report, who present ER for alteration of mental status with unresponsiveness. Pt currently lives with her son in [place]. Per pt's son report pt has been getting more sleepy over the past a few days. she was normal as her usual before she went to bed on last night. she got out of bed in the morning but at noon she was in bed, and she would not wake up. She was found to have agonal breathing as well. EMS gave pt 2 mg of Narcan but she is still unresponsive although there is no access to narcotics as aware. CTs showed acute to subacute infarct in the left occipital and right cerebellar regions with some asymmetry of the ventricles, and the left being greater than the right. Upon examination, pt is unresponsive to all verbal command and stimulation. GCS scale is 3. Pt has PLOST and advance directive which state DNR and comfort measures. Later I met Pt's son at the bedside. He state he did not want her mother suffer more from her disease. He did like to stand by his mother's wishes: comfortable measure only, and no IVF or other medical measures. He wish her mother naturally and comfort on hospital. 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 pt has one son and one daughter. pt's son has Parkson's disease and her daughter is on palliative care due to liver disease. Social History Notes: pt's son report pt has no hx of cigarette smoking, alcohol or drug issue. - POLST Patient has POLST: Yes Meds/Allgy - Home Medications Home Medications: Ambulatory Orders Medication Instructions Recorded Confirmed LORazepam [Ativan] 0.5 mg PO TID PRN 02/19/16 11/30/18 Metoprolol Tartrate 75 mg PO BID 02/19/16 11/30/18 amLODIPine [Norvasc] 10 mg PO DAILY 02/19/16 11/30/18 Cholestyramine [Questran] 4 g PO BID 08/03/18 11/30/18 Donepezil HCl 10 mg PO QPM 08/03/18 11/30/18 Pantoprazole Sodium [Protonix] 40 mg PO DAILY 08/03/18 11/30/18 hydroCHLOROthiazide 25 mg PO DAILY 08/03/18 11/30/18 [Hydrochlorothiazide] Cetirizine HCl 5 mg PO DAILY PRN 08/30/18 11/30/18 - Allergies Allergies/Adverse Reactions: Allergies Allergy/AdvReac Type Severity Reaction Status Date / Time atorvastatin [From Lipitor] Allergy Unknown Verified 11/30/18 13:17 Review of Systems - Other Findings Other Findings: pt is unresponsive to all above questions Exam - Vital Signs Vital Signs: Vital Signs x48h Temp Pulse Resp BP Pulse Ox 11/30/18 16:03 90 12 166/69 H 94 11/30/18 15:30 121 H 19 160/73 H 89 L 11/30/18 15:11 130/59 L 11/30/18 14:08 67 12 149/65 H 93 11/30/18 14:00 67 12 149/65 H 93 11/30/18 13:29 74 16 159/58 H 91 L 11/30/18 13:07 36.8 C 89 20 150/90 H 93 - Physical Exam General Appearance: positive: Lethargic. negative: Alert Eyes Bilateral: positive: Other (pupril is pinpoint) ENT: positive: ENT inspection nml, Pharynx nml Neck: positive: Nml inspection, Thyroid nml, Trachea midline. negative: Thyromegaly, Lymphadenopathy (R), Lymphadenopathy (L) Respiratory: positive: Chest non-tender, Other (agonal breath sound). negative: No respiratory distress, Breath sounds nml Cardiovascular: positive: No murmur, No gallop. negative: Regular rate & rhythm, Irregularly irregular, Extrasystoles, Tachycardia, Bradycardia, Systolic murmur, Diastolic murmur Peripheral Pulses: positive: 2+ Abdomen: positive: Nml bowel sounds, No distention Back: positive: Nml inspection Skin: positive: Color nml, No rash, Warm, Dry. negative: Cyanosis, Diaphoresis, Pallor Extremities: positive: No pedal edema. negative: Pedal edema Neurologic/Psychiatric: positive: Sensory loss. negative: Oriented x3, Motor nml, Sensation nml, Facial droop, Slurred/abnml speech Sepsis Event Note (H) - Evaluation Current Stage of Sepsis: Ruled out Conclusion/Plan - Problem List (1) Cerebrovascular accident (CVA) Conclusion/Plan: CT reveals acute to subacute stroke bilaterally infarct. pt is unresponsive with Coma scale 3. pt's wish on her advanced directive and PLOST, and her family wish are comfort measure only. comfort measure protocol Morphine and Ativan PRN consult with palliative care, pt has been followup with palliative care, and hospice care, per pt's son's request. Qualifiers: CVA mechanism: unspecified Qualified Code(s): I63.9 - Cerebral infarction, unspecified (2) Coma Conclusion/Plan: pt has GCS scale 3 with Coma, it is likely caused by acute to subacute stroke comfort measure only per pt's advanced directive and PLOST (3) Comfort measures only status Conclusion/Plan: Per pt's advance directive and PLOST, and her family's request, comfort measure only (4) Advanced dementia Conclusion/Plan: pt has hx of advanced dementia, now she is Coma due to acute stroke, comfort measure now (5) Hx of coronary artery disease Conclusion/Plan: pt has hx of CAD with stent. Now pt is comfort measure (6) HTN (hypertension) Conclusion/Plan: stable, comfort measure now. (7) GERD (gastroesophageal reflux disease) Conclusion/Plan: pt has unresponsive, comfort measure. - Lab Results Fish Bones: 11/30/18 13:29 11/30/18 13:29 Core Measures - Anticipated LOS I expect patient to be DC'd or transferred within 96 hours.: Yes - DVT/VTE - Prophylaxis VTE/DVT Device ordered at admit?: Yes VTE/DVT Prophylaxis med ordered at admit?: Yes
[2018-11-30] MEDS: SODIUM CHLORIDE FLUSH 0.9% 10 ML SYRINGE IVP SCH (20:44)
[2018-12-01] MEDS: SODIUM CHLORIDE FLUSH 0.9% 10 ML SYRINGE IVP SCH ×3 (00:26→19:05)
[2018-12-01] MEDS: SODIUM CHLORIDE FLUSH 0.9% 10 ML SYRINGE IVP PRN ×4 (03:37→21:34)
[2018-12-01] MEDS: MORPHINE 2 MG/ML CARPUJECT IVP PRN ×5 (03:37→21:33)
[2018-12-01] MEDS ORDERED: SCOPOLAMINE PATCH TOP SCH (07:00)
[2018-12-01] MEDS ORDERED: POLYETHYLENE GLYCOL 3350 17 GM PACKET PO SCH (09:00)
--- NOTE | 2018-12-01 15:34 | CONSULTATION NOTE ---
Palliative Care Follow Up - Referral Referring Provider: Iglesias Time of Visit: [id number] Referral setting: Hospitalized patient Referral Reason: EOL Care Support/Acute Stroke - Information Sources Records reviewed: RN notes reviewed, Previous records reviewed History/Review of Systems obtained from: Family (daughter Belén at bedside; later joined by sonliz Montero) Exam limitations: Clinical condition (patient nonresponsive) - History of Present Illness Update Brief HPI Update: This is an 88-year-old woman with a history of heart disease, advanced dementia likely vascular, and has had slow and steady cognitive and functional decline. Patient is been cared for by her family, lives with her son Winston. Her daughter Belén comes 3 times a week to help with personal care and support. She actually had been doing much better with eating, activity, though was quite resistant on going to personal care. Patient was found acutely nonresponsive, 911 was called, found to be bradycardic, and with CT scan showed acute to subacute infarct in the left occipital and right cerebral regions. Patient is not awakened or been responsive, does present with somewhat noisy respirations, slight moaning, but does not appear in any discomfort or distress. Patient is eminently transitioning, goal is been to allowing natural and focus on comfort measures only. Family is not able to manage care at home, son has physical limitations and daughter does not have suitable home to bring patient to Patient's past medical history includes CAD; PVD; history of [place] with stents, hypertension; hyperlipidemia; osteoporosis; history of hip fracture; personal history of carotid stenosis. Social History - Living Situation Living arrangement: At home Living Situation: With family Support System: Patient is been cared for at home with support from her son, daughter comes several times a week to help with personal care and support, and [facility]. There had been some work to follow-up and complete Medicaid paperwork/susannah but this was not followed up on by son. Medications/Allergies - Medications Active Medication List: Active Medications Lorazepam (Ativan) 0.5 mg SL Q6H PRN PRN Reason: Anxiety Morphine Sulfate (Morphine (Carpuject)) 2 mg IVP Q2HR PRN PRN Reason: Pain 8 to 10 Last Admin: 12/01/18 13:51 Dose: 2 mg Ondansetron HCl (Zofran Inj) 4 mg IVP Q6HR PRN PRN Reason: Nausea / Vomiting Scopolamine HBr (Transderm-Scop) 1 patch TOP Q3D [facility] Last Admin: 12/01/18 07:05 Dose: 1 patch Sodium Chloride (Normal Saline Flush 0.9%) 10 ml IVP PRN PRN PRN Reason: NEEDED PER PROVIDER ORDERS Last Admin: 12/01/18 13:51 Dose: 10 ml Sodium Chloride (Normal Saline Flush 0.9%) 10 ml IVP 0100,0900,1700 [facility] Last Admin: 12/01/18 08:38 Dose: 10 ml LORazepam [Ativan] 0.5 mg PO TID PRN 02/19/16 Metoprolol Tartrate 75 mg PO BID 02/19/16 amLODIPine [Norvasc] 10 mg PO DAILY 02/19/16 Cholestyramine [Questran] 4 g PO BID 08/03/18 Donepezil HCl 10 mg PO QPM 08/03/18 Pantoprazole Sodium [Protonix] 40 mg PO DAILY 08/03/18 hydroCHLOROthiazide [Hydrochlorothiazide] 25 mg PO DAILY 08/03/18 Cetirizine HCl 5 mg PO DAILY PRN 08/30/18 - Allergies Allergies/Adverse Reactions: Allergies Allergy/AdvReac Type Severity Reaction Status Date / Time atorvastatin [From Lipitor] Allergy Unknown Verified 11/30/18 13:17 Review of Systems - Constitutional Constitutional: reports: Weight stable - Other Findings Other Findings: Limited ROS available, patient had been doing well at her baseline, was eating and drinking. She was ambulatory for short distances, she has had intermittent delusions and paranoia. This was an acute change from her baseline. Physical Exam - Vital Signs Vital Signs: Vital Signs x48h Temp 12/01/18 08:02 36.5 C - Physical Exam General Appearance: positive: No acute distress, Nonresponsive, Other (mild reflexive moaning) Eyes Bilateral: positive: Other (eyes closed) Neck: positive: Trachea midline Cardiovascular: positive: Bradycardia Respiratory: positive: No respiratory distress, Rhonchi (upper airway secretions; moist respirations improved with repositioning) Skin: positive: Pallor Extremities: positive: No pedal edema Neurologic/Psychiatric: positive: Other (nonresponsive) Palliative Care - POLST Patient has POLST: Yes POLST Status: DNR, Comfort Measures Pain: Comment (Does not demonstrate furrowed brow; or distress/signs of discomfort during visit) - Palliative Care Discussion: Original meeting with daughter Belén, is not surprised patient has had a turn for the worse. She has seen her mother is frail and failing though this was an acute change. She does not perceive her brother who has Parkinson's and memory issues to be able to take end-of-life care are her home on hospice. She herself is not in position to be able to bring her back to her trailer. Both children have health issues, and patient does appear to be imminently transitioning. Patient has a level of gardening, has been quite feisty in the past, had actually started painting rocks. She had seen her mother last Tuesday, and it had good interactions so is feeling positive about this. Though she does admit to complicated family dynamics. We did discuss in the context of wishes and in agreement would leave message for [facility], this would be acceptable to both her and her brother. She does not [employer], and did not feel it necessary to pursue experiential therapist support. Met with brother Bhupinder and his significant other and Belén. Bhupinder had made contact previously with [facility], but it in follow-up had not finished the paperwork. Given their financial situation, did help facilitate this conversation and planning. Both are quite appropriately tearful, multiple questions regarding end-of-life and end-of-life planning and what to expect. Belén would like to do horne and stay at the bedside. Psychosocial support and anticipatory guidance given. Results - Lab Results Lab results reviewed: Yes Fish Bones: 11/30/18 13:29 11/30/18 13:29 Impression and Recommendations - Palliative Care Impression: This is an 88-year-old woman with advanced vascular dementia, who is had an acute stroke. She is imminently transitioning with hours to days, goal is to provide comfort and allow natural . Palliative care providing anticipatory guidance and support. Recommendations/Counseling Done: 1. Acute stroke. Patient has not been responsive. She presents with periods of apnea, bradycardia, and reflux of moaning. She does not appear in any distress, goals are to focus on comfort and allow natural . Counseling provided regarding anticipatory guidance, patient's prognosis most likely hours to days. 2. Advanced care planning. Both son and daughter are clear in their goals for the mother, patient does have a POLST. Currently family would not be able to meet patient's needs in home setting, called to [facility] with message left to see if any availability. They have not completed Medicaid paperwork, though most likely would meet criteria. Given the imminent decline, hospice availability not until early next week, patient most likely will here in the hospital. Arrangements for support were made through [facility] . Time Spent: 60 minutes with greater than 50% of this done in counseling regarding anticipatory guidance, clarification of goals, and coordination of care with hospitalist and SHELTER CASE MANAGER.
--- NOTE | 2018-12-01 16:34 | PROVIDER PROGRESS NOTE ---
Subjective - Prog Note Date Prog Note Date: 12/01/18 - Subjective Pt reports feeling: No change Subjective: pt is still unresponsive but seems she is comfortable. her breath is more slow and shortness. I met pt's daughter in the bedside. Daughter recognize and understand her mother is in imminent in hours or days. Psychosocial support and anticipatory guidance given, questions were answered. Current Medications - Current Medications Current Medications: Active Medications Lorazepam (Ativan) 0.5 mg SL Q6H PRN PRN Reason: Anxiety Morphine Sulfate (Morphine (Carpuject)) 2 mg IVP Q2HR PRN PRN Reason: Pain 8 to 10 Last Admin: 12/01/18 13:51 Dose: 2 mg Ondansetron HCl (Zofran Inj) 4 mg IVP Q6HR PRN PRN Reason: Nausea / Vomiting Scopolamine HBr (Transderm-Scop) 1 patch TOP Q3D [facility] Last Admin: 12/01/18 07:05 Dose: 1 patch Sodium Chloride (Normal Saline Flush 0.9%) 10 ml IVP PRN PRN PRN Reason: NEEDED PER PROVIDER ORDERS Last Admin: 12/01/18 13:51 Dose: 10 ml Sodium Chloride (Normal Saline Flush 0.9%) 10 ml IVP 0100,0900,1700 AMBER Last Admin: 12/01/18 08:38 Dose: 10 ml LORazepam [Ativan] 0.5 mg PO TID PRN 02/19/16 Metoprolol Tartrate 75 mg PO BID 02/19/16 amLODIPine [Norvasc] 10 mg PO DAILY 02/19/16 Cholestyramine [Questran] 4 g PO BID 08/03/18 Donepezil HCl 10 mg PO QPM 08/03/18 Pantoprazole Sodium [Protonix] 40 mg PO DAILY 08/03/18 hydroCHLOROthiazide [Hydrochlorothiazide] 25 mg PO DAILY 08/03/18 Cetirizine HCl 5 mg PO DAILY PRN 08/30/18 Objective - Vital Signs/Intake & Output Reviewed Vital Signs: Yes Intake & Output: Intake & Output 11/28/18 11/29/18 11/30/18 12/01/18 23:59 23:59 23:59 23:59 Intake Total 1000 Output Total 1050 250 Balance -50 -250 - Objective General Appearance: positive: Lethargic ENT: positive: ENT inspection nml Neck: positive: Nml inspection, Thyroid nml, Trachea midline. negative: Thyromegaly, Lymphadenopathy (R), Lymphadenopathy (L) Respiratory: negative: No respiratory distress, Breath sounds nml Cardiovascular: positive: Tachycardia. negative: Regular rate & rhythm, Systolic murmur, Diastolic murmur Peripheral Pulses: 1+ Radial (R), 1+ Radial (L) Abdomen: negative: Nml bowel sounds, Tenderness Skin: positive: Color nml, No rash, Warm, Dry Extremities: positive: Nml appearance - Lab Results Fish Bones: 11/30/18 13:29 11/30/18 13:29 ABX Reporting Has patient been on IV antibiotics over the past 48 hours?: No Assessment/Plan - Problem List (1) Cerebrovascular accident (CVA) Impression: 12/01 pt is comfort measure only per pt's family request. pt is in the imminent at hours or days, answer all questions of pt's family, Psychosocial lainez pport and anticipatory guidance given. consult with palliative care, followup the recommendations CT reveals acute to subacute stroke bilaterally infarct. pt is unresponsive with Coma scale 3. pt's wish on her advanced directive and PLOST, and her family wish are comfort measure only. comfort measure protocol Morphine and Ativan PRN consult with palliative care, pt has been followup with palliative care, and hospice care, per pt's son's request. (2) Coma Conclusion/Plan: 12/01 still present coma, pt is in the imminent at hours or days pt has GCS scale 3 with Coma, it is likely caused by acute to subacute stroke comfort measure only per pt's advanced directive and PLOST (3) Comfort measures only status Conclusion/Plan: Per pt's advance directive and PLOST, and her family's request, comfort measure only (4) end life care pt is likely in hours or days. end life care are provided by our team (5) Advanced dementia Conclusion/Plan: pt has hx of advanced dementia, now she is Coma due to acute stroke, comfort measure now (6) Hx of coronary artery disease Conclusion/Plan: pt has hx of CAD with stent. Now pt is comfort measure (7) HTN (hypertension) Conclusion/Plan: stable, comfort measure now. (8) GERD (gastroesophageal reflux disease) Conclusion/Plan: pt has unresponsive, comfort measure. Qualifiers: CVA mechanism: unspecified Qualified Code(s): I63.9 - Cerebral infarction, unspecified
[2018-12-01 19:04] VITALS: BP 164/42
[2018-12-02] MEDS: MORPHINE 2 MG/ML CARPUJECT IVP PRN ×9 (00:53→23:20)
[2018-12-02] MEDS: SODIUM CHLORIDE FLUSH 0.9% 10 ML SYRINGE IVP SCH ×3 (00:53→16:30)
[2018-12-02] MEDS: SODIUM CHLORIDE FLUSH 0.9% 10 ML SYRINGE IVP PRN ×6 (06:26→23:21)
--- NOTE | 2018-12-02 18:12 | PROVIDER PROGRESS NOTE ---
Subjective - Prog Note Date Prog Note Date: 12/02/18 - Subjective Pt reports feeling: Worse Subjective: pt continue to unresponsive, and her pupil is still pinpoint and is unresponsive to lights. pt's breath rate is more slower, 5-6 minutes per minute. pt's family still request comfort measure only, and end life care. Current Medications - Current Medications Current Medications: LORazepam [Ativan] 0.5 mg PO TID PRN 02/19/16 Metoprolol Tartrate 75 mg PO BID 02/19/16 amLODIPine [Norvasc] 10 mg PO DAILY 02/19/16 Cholestyramine [Questran] 4 g PO BID 08/03/18 Donepezil HCl 10 mg PO QPM 08/03/18 Pantoprazole Sodium [Protonix] 40 mg PO DAILY 08/03/18 hydroCHLOROthiazide [Hydrochlorothiazide] 25 mg PO DAILY 08/03/18 Cetirizine HCl 5 mg PO DAILY PRN 08/30/18 Objective - Vital Signs/Intake & Output Reviewed Vital Signs: Yes Intake & Output: Intake & Output 11/29/18 11/30/18 12/01/18 12/02/18 23:59 23:59 23:59 23:59 Intake Total 1000 30 Output Total 1050 400 215 Balance -50 370 -215 - Objective General Appearance: positive: Lethargic Eyes Bilateral: positive: Other (pinpoint and fixed pupil bilaterally) ENT: positive: ENT inspection nml Neck: positive: Nml inspection, Trachea midline. negative: Thyromegaly, Lymphadenopathy (R), Lymphadenopathy (L) Respiratory: positive: Chest non-tender, Other (breath is slow and shadow) Cardiovascular: positive: Irregularly irregular, Tachycardia. negative: Systolic murmur, Diastolic murmur Peripheral Pulses: 1+ Radial (R), 1+ Radial (L) Abdomen: positive: No distention Skin: positive: Dry, Pallor Neurologic/Psychiatric: positive: Facial droop - Lab Results Fish Bones: 11/30/18 13:29 11/30/18 13:29 ABX Reporting Has patient been on IV antibiotics over the past 48 hours?: No Sepsis Event Note (H) - Evaluation Current Stage of Sepsis: Ruled out Assessment/Plan - Problem List (1) Cerebrovascular accident (CVA) Impression: 12/02 pt is still unresponsive. breath is more slow and shadow. pt's family request continuing comfort care and end life care. 12/01 pt is comfort measure only per pt's family request. pt is in the imminent at hours or days, answer all questions of pt's family, Psychosocial support and anticipatory guidance given. consult with palliative care, followup the recommendations CT reveals acute to subacute stroke bilaterally infarct. pt is unresponsive with Coma scale 3. pt's wish on her advanced directive and PLOST, and her family wish are comfort measure only. comfort measure protocol Morphine and Ativan PRN consult with palliative care, pt has been followup with palliative care, and hospice care, per pt's son's request. (2) Coma Conclusion/Plan: 12/02 pt continue coma, continue end life care 12/01 still present coma, pt is in the imminent at hours or days pt has GCS scale 3 with Coma, it is likely caused by acute to subacute stroke comfort measure only per pt's advanced directive and PLOST (3) Comfort measures only status Conclusion/Plan: 12/02 per pt's family request, continue comfort measure only care for pt Per pt's advance directive and PLOST, and her family's request, comfort measure only (4) end life care 12/02 per pt's family request, continue comfort measure only care for pt pt is likely in hours or days. end life care are provided by our team (5) Advanced dementia Conclusion/Plan: pt has hx of advanced dementia, now she is Coma due to acute stroke, comfort measure now (6) Hx of coronary artery disease Conclusion/Plan: pt has hx of CAD with stent. Now pt is comfort measure (7) HTN (hypertension) Conclusion/Plan: stable, comfort measure now. (8) GERD (gastroesophageal reflux disease) Conclusion/Plan: pt has unresponsive, comfort measure. Qualifiers: CVA mechanism: unspecified Qualified Code(s): I63.9 - Cerebral infarction, unspecified
--- NOTE | 2018-12-02 23:49 | PROVIDER PROGRESS NOTE ---
Construction Site Crossing Guard Note - Construction Site Crossing Guard Note Construction Site Crossing Guard Note: Was called to see patient because she was unresponsive On examination there was no radial of carotid pulse bilaterally. Spontaneous breath sounds were absent. Cardiac and breath sounds were absent on auscultation Patient was unresponsive to tactile or verbal stimuli. Pupils were fixed, dilated and unresponsive to light. Corneal reflex was absent. Patient was pronounce at 23:34pn on 12/02/2018. He daughter was at bedside. Her son was reached by phone. The home will be contacted shortly
--- NOTE | 2018-12-02 23:53 | DISCHARGE SUMMARY ---
"Discharge Summary Admit Date: 11/30/18 Discharge Date: 12/02/18 [facility] Code Status: Do Not Attempt Resuscitation Condition at Discharge: Poor Discharge Disposition: 20 - DIAGNOSES Admission Diagnoses: 1. Cerebrovascular Accident 2. Coma 3. Advanced Dementia 4. Hx of Coronary Artery Disease 5. Hypertension Discharge Diagnoses with Status of Each Condition: 1. Cerebrovascular Accident: Comfort Measures. Patient 2. Coma: Comfort Measures. Patient 3. Advanced Dementia: Comfort Measures. Patient 4. Hx of Coronary Artery Disease: Comfort Measures. Patient 5. Hypertension: Comfort Measures. Patient - HPI History of Present Illness: Ms. Richardson is a 88-yrs-old female with a PMH significant for advanced dementia; CAD; PVD; hx of UT with stents placed; HTN; HLD; osteoporosis; hx of hip fracture; anxiety; carotid stenosis without revascularization due to pt's medical condition in 2011 per pt's son's report, who presented to the ER for alteration of mental status with unresponsiveness. Pt currently lives with her son in [place]. Per pt's son report pt has been getting more sleepy over the past a few days. she was normal as her usual before she went to bed last night. she got out of bed in the morning but at noon she was in bed, and she would not wake up. She was found to have agonal breathing as well. EMS gave pt 2 mg of Narcan but she was still unresponsive. there is no access to narcotics as aware. CTs showed acute to subacute infarct in the left occipital and right cerebellar regions with some asymmetry of the ventricles, and the left being greater than the right. Upon examination, pt is unresponsive to all verbal command and stimulation. GCS scale is 3. Pt has POLST and advance directive which state DNR and comfort measures. Later I met Pt's son at the bedside. He stated that he did not want her mother to suffer more from her disease. He did like to stand by his mother's wishes: comfort measure only, and no IVF or other medical measures. He wishes her mother to naturally and comfortably pass on in the hospital. - CONSULTS | PROCEDURES Consultations: Palliative Care - HOSPITAL COURSE Hospital Course: Patient was maintained on comfort measures. I was called to see patient tonight because she was unresponsive On examination there was no radial of carotid pulse bilaterally. Spontaneous breath sounds were absent. Cardiac and breath sounds were absent on auscultation Patient was unresponsive to tactile or verbal stimuli. Pupils were fixed, dilated and unresponsive to light. Corneal reflex was absent. Patient was pronounce at 23:34pn on 12/02/2018. He daughter was at bedside. Her son was reached by phone. The home will be contacted shortly - ALLERGIES Allergies/Adverse Reactions: Allergies Allergy/AdvReac Type Severity Reaction Status Date / Time atorvastatin [From Lipitor] Allergy Unknown Verified 11/30/18 13:17 - MEDICATIONS Home Medications: Ambulatory Orders Medication Instructions Recorded Confirmed LORazepam [Ativan] 0.5 mg PO TID PRN 02/19/16 11/30/18 Metoprolol Tartrate 75 mg PO BID 02/19/16 11/30/18 amLODIPine [Norvasc] 10 mg PO DAILY 02/19/16 11/30/18 Cholestyramine [Questran] 4 g PO BID 08/03/18 11/30/18 Donepezil HCl 10 mg PO QPM 08/03/18 11/30/18 Pantoprazole Sodium [Protonix] 40 mg PO DAILY 08/03/18 11/30/18 hydroCHLOROthiazide 25 mg PO DAILY 08/03/18 11/30/18 [Hydrochlorothiazide] Cetirizine HCl 5 mg PO DAILY PRN 08/30/18 11/30/18 - LABS Result Diagrams: 11/30/18 13:29 11/30/18 13:29 - SEPSIS Current Stage of Sepsis: Ruled out - TIME SPENT Time Spent in Discharge (Minutes): 31"
== END 2018-12-02 23:34 | disposition expired | DRG 64 ==
LOC: EDUNIT# → ED 13:01 → MS2 16:52
PROVIDERS: ADMIT Nurse Practitioner Gerontology; ATTEND Internal Medicine
DX: I63.9 Cerebral infarction, unspecified (principal); R41.82 Altered mental status, unspecified; R40.20 Unspecified coma; E78.00 Pure hypercholesterolemia, unspecified; R40.2433 Glasgow coma scale score 3-8, at hospital admission; F01.50 Vascular dementia, unspecified severity, without behavioral disturbance, psychotic disturbance, mood disturbance, and anxiety; I10 Essential (primary) hypertension; I25.10 Atherosclerotic heart disease of native coronary artery without angina pectoris; Z51.5 Encounter for palliative care; I73.9 Peripheral vascular disease, unspecified; E78.5 Hyperlipidemia, unspecified; M81.0 Age-related osteoporosis without current pathological fracture; F41.9 Anxiety disorder, unspecified; I65.29 Occlusion and stenosis of unspecified carotid artery; Z66 Do not resuscitate; K21.9 Gastro-esophageal reflux disease without esophagitis; Z95.5 Presence of coronary angioplasty implant and graft; I25.2 Old myocardial infarction
CPT/HCPCS: 36415; 70450; 71045; 80053; 81003; 82550; 83605; 83690; 84484; 85025; 87040; 93005; 96361; 96374; 99285; J3490; 80306; 81001; 87086; 99222